=== PATIENT | female | born 1995 | race Two or more races ===

== ENCOUNTER 2019-03-01 16:36 | Outpatient (CLI) | payer OTHER ==
[2019-03-01 17:51] VITALS: BP 129/71; PULSE 100; RESP 16; TEMP 97.1
--- NOTE | 2019-03-19 07:56 | P.MSEPDOC ---
Presenting Problems - Arrival Data Date of Arrival on Unit: 03/01/19 Time of Arrival on Unit: 16:36 Mode of Transport: Ambulatory - Complaint OB-Reason for Admission/Chief Complaint: Decreased Movement Medical History - Information : 1 Para: 0 Term: 0 : 0 Abortions: Spontaneous or Elective: 0 Number of Living Children: 0 - Gestational Age Gestational Age by SCOTT (wks/days): 28 Weeks and 0 Days Review of Systems - Review of Systems Constitutional: No problems Breast: No problems ENT: No problems Cardiovascular: No problems Respiratory: No problems Gastrointestinal: No problems Genitourinary: No problems Musculoskeletal: No problems Neurological: No problems Skin: No problems Vital Signs - Temperature Temperature: 97.1 F Temperature Source: Temporal Artery Scan - Pulse Right Sitting Pulse Rate: 100 Pulse Assessment Method: Automatic Cuff - Respirations Respiratory Rate: 16 Oxygen Delivery Method: Room Air - Blood Pressure Right Arm Blood Pressure: 129/71 Blood Pressure Mean: 90 Blood Pressure Source: Automatic Cuff Medical Screen Scoring (Pre) - Cervical Exam Dilation: Exam Deferred Effacement: Exam Deferred Membranes: Intact - Uterine Contractions Frequency: N/A Duration: N/A Intensity: N/A - Maternal Vital Signs Maternal Temperature: N/A Maternal Blood Pressure: N/A Signs of Preeclampsia: N/A Maternal Respirations: N/A - Maternal Trauma Maternal Trauma: N/A - Assessment - Baby A Baseline FHR: 140 Heart Rate - NICHD Category: Category I (Normal) = 0 NST: Reactive Position: N/A Station: N/A - Total Score - Baby A Total Score - Baby A: 0 - Total Score - Baby B Total Score - Baby B: 0 - Total Score - Baby C Total Score - Baby C: 0 - Level of Risk - Baby A Level of Risk - Baby A: Low (0-5) - Level of Risk - Baby B Level of Risk - Baby B: Low (0-5) - Level of Risk - Baby C Level of Risk - Baby C: Low (0-5) Physician Notification (Pre) - Physician Notified Physician Notified Date: 03/01/19 Physician Notified Time: 17:28 New Order Received: Yes (D/c home) Disposition - Disposition OB Disposition: Discharge to home Discharge Date: 03/01/19 Discharge Time: 17:35 I agree with the RN Medical Screening Exam: Yes Risk & Benefit of care provided described in d/c instruction: Yes Diagnosis: DECREASED MOVEMENTS, THIRD TRIMESTER, FETUS 1
== END 2019-03-01 17:35 | disposition home or self-care (01) ==
LOC: FBPOP 16:36
PROVIDERS: ATTEND Obstetrics & Gynecology
DX: O36.8131 Decreased fetal movements, third trimester, fetus 1 (principal); Z3A.28 28 weeks gestation of pregnancy
CPT/HCPCS: 59025; G0463; 99213

== ENCOUNTER 2019-07-15 22:20 | Inpatient (IN) | payer OTHER ==
[2019-07-15] MEDS ORDERED: NALOXONE 0.4 MG/ML 1 ML VIAL IV PRN (22:57)
--- NOTE | 2019-07-15 22:57 | ED ---
General Adult HPI - General Chief complaint: Abdominal Pain Stated complaint: Abdominal pain Time Seen by Provider: 07/15/19 22:30 Source: patient, RN notes reviewed, old records reviewed (. Reports from [place] ) Mode of arrival: EMS Limitations: no limitations - History of Present Illness Initial comments: Patient is a pleasant 24-year-old female presenting to the emergency Department as a transfer from [facility]. Patient complains of abdominal discomfort since yesterday. They're patient did have elevated liver enzymes and computed tomography scan concerning for cholecystitis. Patient was transferred for GI consult. Patient still has discomfort and states it is starting to increase again, moderate at this time. Patient has had some nausea and decreased appetite. No fevers. No vomiting. No history of similar symptoms previously. No constipation or diarrhea. Abdominal discomfort is right upper abdomen - Related Data Home Medications Medication Instructions Recorded Confirmed Pnv No.95/Ferrous Fum/Folic AC 1 tab PO DAILY 03/01/19 03/01/19 [ Multivitamin Tablet] Allergies Allergy/AdvReac Type Severity Reaction Status Date / Time No Known Allergies Allergy Verified 03/01/19 17:00 Review of Systems ROS Statement: Those systems with pertinent positive or pertinent negative responses have been documented in the HPI. ROS Other: All systems not noted in ROS Statement are negative. Constitutional: Denies: fever Eyes: Denies: eye pain ENT: Denies: ear pain Respiratory: Denies: cough, dyspnea Cardiovascular: Denies: chest pain Endocrine: Denies: fatigue Gastrointestinal: Reports: abdominal pain, nausea Genitourinary: Denies: dysuria Musculoskeletal: Denies: back pain Skin: Denies: rash Neurological: Denies: weakness Past Medical History History of Any Multi-Drug Resistant Organisms: None Reported Smoking Status: Never smoker General Exam Limitations: no limitations General appearance: alert, in no apparent distress Head exam: Present: normocephalic Eye exam: Present: normal appearance Neck exam: Present: normal inspection Respiratory exam: Present: normal lung sounds bilaterally Cardiovascular Exam: Present: regular rate, normal rhythm GI/Abdominal exam: Present: soft, tenderness (Mild tenderness right upper quadrant), normal bowel sounds. Absent: distended, guarding, rebound, rigid, pulsatile mass Extremities exam: Present: normal inspection. Absent: pedal edema, calf tenderness Back exam: Present: normal inspection. Absent: tenderness Neurological exam: Present: alert Psychiatric exam: Present: normal affect, normal mood Skin exam: Present: normal color Course Vital Signs 07/15/19 22:25 Temperature 98.9 F Pulse Rate 84 Respiratory 16 Rate Blood Pressure 127/50 O2 Sat by Pulse 99 Oximetry - Reevaluation(s) Reevaluation #1: 07/15/19 22:56 Patient does not meet sepsis criteria at this time. Patient was given antibiotics prior to transfer. Medical Decision Making - Medical Decision Making Patient is updated on results and plan. Case was discussed in detail with Dr. Wade, who will admit for hospital call Disposition Clinical Impression: Cholecystitis Disposition: ADMITTED IP TO THIS HOSP Is patient prescribed a controlled substance at d/c from ED?: No Referrals: Bea Carson NPC [Primary Care Provider] - 1-2 days Decision Time: 22:57
[2019-07-15] MEDS ORDERED: HYDROmorphone 1 MG/ML 1 ML SYRINGE IVP STA (22:59)
[2019-07-15] MEDS: SODIUM CHLORIDE 0.9% 1,000 ML IV SCH (23:47)
[2019-07-16] MEDS: PIPERACILLIN-TAZOBACTAM 3.375 GM in SODIUM CHLORIDE 0.9% 100 ML IVPB SCH ×3 (00:23→16:16)
[2019-07-16] MEDS: HYDROmorphone 1 MG/ML 1 ML SYRINGE IVP PRN ×5 (05:36→20:56)
[2019-07-16] MEDS: SODIUM CHLORIDE 0.9% 1,000 ML IV SCH ×2 (05:37→14:13)
[2019-07-16] MEDS: PANTOPRAZOLE 40 MG/10 ML VIAL IV SCH (08:35)
[2019-07-16 08:58] LABS: ALT 342 U/L (4-34); AST 292 U/L (14-36); African American GFR (CKD) >90 (>60 ml/min/1.73 sqM); Albumin 3.3 g/dL (3.5-5.0); Alkaline Phosphatase 187 U/L (38-126); Anion Gap 6 mmol/L; Blood Urea Nitrogen 10 mg/dL (7-17); Calcium 8.4 mg/dL (8.4-10.2); Carbon Dioxide 20 mmol/L (22-30); Chloride 112 mmol/L (98-107); Glucose 80 mg/dL (74-99); Non-African American GFR(CKD) >90 (>60 ml/min/1.73 sqM); Sodium 138 mmol/L (137-145); Total Bilirubin 1.2 mg/dL (0.2-1.3); Total Protein 6.5 g/dL (6.3-8.2)
[2019-07-16 09:07] LABS: Potassium 4.7 mmol/L (3.5-5.1)
[2019-07-16 09:27] LABS: Basophils % (A) 0 %; Eosinophils # (A) 0.2 k/uL (0-0.7); Eosinophils % (A) 3 %; HCT 31.5 % (34.0-46.0); HGB 9.9 gm/dL (11.4-16.0); Hypochromasia Marked; Lymphocytes # (A) 1.5 k/uL (1.0-4.8); Lymphocytes % (A) 21 %; MCH 26.6 pg (25.0-35.0); MCHC 31.5 g/dL (31.0-37.0); MCV 84.5 fL (80.0-100.0); Mean Platelet Volume 6.7; Monocytes # (A) 0.3 k/uL (0-1.0); Monocytes % (A) 4 %; Neutrophils # (A) 4.9 k/uL (1.3-7.7); Neutrophils % (A) 71 %; Platelet Count 380 k/uL (150-450); RBC 3.73 m/uL (3.80-5.40); RDW 15.4 % (11.5-15.5)
[2019-07-16] MEDS ORDERED: KETOROLAC 30 MG/ML 1 ML VIAL IVP PRN (10:37)
--- NOTE | 2019-07-16 11:15 | P.GSCN ---
History of Present Illness Consult date: 07/16/19 Reason for Consult: Choledocholithiasis History of present illness: 24-year-old female has had abdominal pain upper abdomen for the last 3 days. She went to [place] [facility]. Had a CT abdomen and pelvis showing a distended gallbladder. Liver enzymes were elevated. She describes darker urine and slight yellowish discoloration to her skin. No history of similar events in the past. No ultrasound was done. 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 He sees a travel money advisor in [place]. Pain is continuing today. Currently 6 out of 10. Despite that she is hungry. GI is consulted. Review of Systems The patient denies any acute changes in vision or hearing, no dysphagia or odynophagia, no chest pain or shortness of breath, no dysuria or hematuria, no headache, no runny nose, no rectal bleeding or melena, no unexplained weight loss Past Medical History Additional Past Medical History / Comment(s): hemophilia History of Any Multi-Drug Resistant Organisms: None Reported Additional Past Surgical History / Comment(s): screw in right hip Past Anesthesia/Blood Transfusion Reactions: No Reported Reaction Past Psychological History: No Psychological Hx Reported Smoking Status: Former smoker Past Alcohol Use History: None Reported Past Drug Use History: Marijuana Additional Drug Use History / Comment(s): pt states she uses marijuana occasionally - Past Family History Mother Family Medical History: Unable to Obtain Father Family Medical History: Unable to Obtain Medications and Allergies Home Medications Medication Instructions Recorded Confirmed Type Ibuprofen [Motrin] 400 mg PO Q6HR PRN 07/15/19 07/15/19 History Allergies Allergy/AdvReac Type Severity Reaction Status Date / Time aspirin AdvReac PATIENT Verified 07/15/19 23:18 STATES SHE IS A hemophiliac Surgical - Exam Vital Signs Temp Pulse Resp BP Pulse Ox 98.9 F 84 16 127/50 99 07/15/19 22:25 07/15/19 22:25 07/15/19 22:25 07/15/19 22:25 07/15/19 22:25 Physical exam: General: Well-developed, well-nourished HEENT: Normocephalic, sclerae nonicteric Abdomen: Right upper quadrant tenderness, nondistended Extremities: No edema, mild jaundice appearance Neuro: Alert and oriented Results - Labs 07/16/19 08:44 07/16/19 07:34 Abnormal Lab Results - Last 24 Hours (Table) 07/16/19 07/16/19 Range/Units 07:34 08:44 RBC 3.73 L (3.80-5.40) m/uL Hgb 9.9 L (11.4-16.0) gm/dL Hct 31.5 L (34.0-46.0) % Chloride 112 H (98-107) mmol/L Carbon Dioxide 20 L (22-30) mmol/L AST 292 H (14-36) U/L ALT 342 H (4-34) U/L Alkaline Phosphatase 187 H (38-126) U/L Albumin 3.3 L (3.5-5.0) g/dL Diabetes panel 07/16/19 Range/Units 07:34 Sodium 138 (137-145) mmol/L Potassium 4.7 (3.5-5.1) mmol/L Chloride 112 H (98-107) mmol/L Carbon Dioxide 20 L (22-30) mmol/L BUN 10 (7-17) mg/dL Creatinine 0.64 (0.52-1.04) mg/dL Glucose 80 (74-99) mg/dL Calcium 8.4 (8.4-10.2) mg/dL AST 292 H (14-36) U/L ALT 342 H (4-34) U/L Alkaline Phosphatase 187 H (38-126) U/L Total Protein 6.5 (6.3-8.2) g/dL Albumin 3.3 L (3.5-5.0) g/dL Calcium panel 07/16/19 Range/Units 07:34 Calcium 8.4 (8.4-10.2) mg/dL Albumin 3.3 L (3.5-5.0) g/dL Pituitary panel 07/16/19 Range/Units 07:34 Sodium 138 (137-145) mmol/L Potassium 4.7 (3.5-5.1) mmol/L Chloride 112 H (98-107) mmol/L Carbon Dioxide 20 L (22-30) mmol/L BUN 10 (7-17) mg/dL Creatinine 0.64 (0.52-1.04) mg/dL Glucose 80 (74-99) mg/dL Calcium 8.4 (8.4-10.2) mg/dL Adrenal panel 07/16/19 Range/Units 07:34 Sodium 138 (137-145) mmol/L Potassium 4.7 (3.5-5.1) mmol/L Chloride 112 H (98-107) mmol/L Carbon Dioxide 20 L (22-30) mmol/L BUN 10 (7-17) mg/dL Creatinine 0.64 (0.52-1.04) mg/dL Glucose 80 (74-99) mg/dL Calcium 8.4 (8.4-10.2) mg/dL Total Bilirubin 1.2 (0.2-1.3) mg/dL AST 292 H (14-36) U/L ALT 342 H (4-34) U/L Alkaline Phosphatase 187 H (38-126) U/L Total Protein 6.5 (6.3-8.2) g/dL Albumin 3.3 L (3.5-5.0) g/dL Assessment and Plan (1) Choledocholithiasis Narrative/Plan: 24-year-old female with probable choledocholithiasis and acute cholecystitis. Liver enzymes trending downwards currently. We'll check abdominal ultrasound at this time. Await GI and hematology consult. Repeat labs tomorrow. Current Visit: Yes Status: Acute Code(s): K80.50 - CALCULUS OF BILE DUCT W/O CHOLANGITIS OR CHOLECYST W/O OBST SNOMED Code(s): 402625214
--- NOTE | 2019-07-16 12:28 | US ---
"EXAMINATION TYPE: US gallbladder DATE OF EXAM: 07/16/2019 COMPARISON: NONE CLINICAL HISTORY: elevated liver enzymes. EXAM MEASUREMENTS: Liver Length: 19.7 cm Gallbladder Wall: 0.3 cm CBD: 1.2 cm Right Kidney: 11.4 cm Morbidly obese patient. Pancreas: wnl Liver: enlarged but homogeneous. Gallbladder: scattered dependant echogenic foci with biliary sludge, some echogenic foci in anterior wall possibly representing adenomyomatosis, probable stone in neck. Thin septation within the gallbl adder. Evidence for sonographic Scruggs's sign: no CBD: dilated Right Kidney: wnl IMPRESSION: There appears to be choledocholithiasis with gallstones in the gallbladder neck and withi n the dilated common bile duct. Biliary sludge is also seen with few thin septations of the gallbladd er. However sonographic Scruggs's sign is negative and no pericholecystic fluid is seen. The gallbladd er however is hydropic in size and overall findings are concerning for developing acute cholecystitis . A [place] level critical message alert has been initiated for Vernon Eastman via the 10X10 Room 36 0 | Critical Results System on 07/16/2019 12:26 PM. This message alert has been sent to Vernon maurer via the preferences provided by the clinician for the receipt of Radiology Critical Findings. [facility] ID [id number]."
--- NOTE | 2019-07-16 13:01 | P.HPIM ---
History of Present Illness 24-year-old female came in with comments of right upper quadrant abdominal pain started about 3 days ago patient denied any fever chills. CT of the abdomen did show distended gallbladder ultrasound of the abdomen was opted which showed choledocholithiasis patient does have elevated liver enzymes and elevated bilirubin. Patient does have dark colored urine with some yellowish discoloration of the skin. Patient had some nausea no vomiting. Patient denied any fever chills. Patient apparently had history of hemophilia a patient had surgeries in the past without any complications. General surgery consult and hematology because of this history although history of hemophilia is not really clear at this time. Pain in the right upper quadrant a sharp in nature moderate severity which presently resolved. Review of Systems REVIEW OF SYSTEMS: CONSTITUTIONAL: No fever, no malaise, no fatigue. HEENT: No recent visual problems or hearing problems. Denied any sore throat. CARDIOVASCULAR: No chest pain, orthopnea, PND, no palpitations, no syncope. PULMONARY: No shortness of breath, no cough, no hemoptysis. GASTROINTESTINAL: As mentioned in HPI NEUROLOGICAL: No headaches, no weakness, no numbness. HEMATOLOGICAL: Denies any bleeding or petechiae. GENITOURINARY: Denies any burning micturition, frequency, or urgency. MUSCULOSKELETAL/RHEUMATOLOGICAL: Denies any joint pain, swelling, or any muscle pain. ENDOCRINE: Denies any polyuria or polydipsia. The rest of the 14-point review of systems is negative. Past Medical History Additional Past Medical History / Comment(s): hemophilia History of Any Multi-Drug Resistant Organisms: None Reported Additional Past Surgical History / Comment(s): screw in right hip Past Anesthesia/Blood Transfusion Reactions: No Reported Reaction Past Psychological History: No Psychological Hx Reported Smoking Status: Former smoker Past Alcohol Use History: None Reported Past Drug Use History: Marijuana Additional Drug Use History / Comment(s): pt states she uses marijuana occasionally - Past Family History Mother Family Medical History: Unable to Obtain Father Family Medical History: Unable to Obtain Medications and Allergies Home Medications Medication Instructions Recorded Confirmed Type Ibuprofen [Motrin] 400 mg PO Q6HR PRN 07/15/19 07/15/19 History Allergies Allergy/AdvReac Type Severity Reaction Status Date / Time aspirin AdvReac PATIENT Verified 07/15/19 23:18 STATES SHE IS A hemophiliac Physical Exam Vitals: Vital Signs Temp Pulse Pulse Resp BP BP Pulse Ox 07/16/19 08:34 98.1 F 76 18 100/60 95 07/16/19 05:30 98.0 F 75 18 99/66 95 07/16/19 00:40 97.9 F 78 18 98/60 97 07/16/19 00:19 98.7 F 86 19 114/70 97 07/15/19 22:25 98.9 F 84 16 127/50 99 Intake and Output 07/15/19 07/16/19 07/16/19 22:59 06:59 14:59 Other: # Voids 1 1 Weight 125.645 kg 125.8 kg PHYSICAL EXAMINATION: GENERAL: The patient is alert and oriented x3, not in any acute distress. Obese HEENT: Pupils are round and equally reacting to light. EOMI. No scleral icterus. No conjunctival pallor. Normocephalic, atraumatic. No pharyngeal erythema. No thyromegaly. CARDIOVASCULAR: S1 and S2 present. No murmurs, rubs, or gallops. PULMONARY: Chest is clear to auscultation, no wheezing or crackles. ABDOMEN: Soft, nontender, nondistended, normoactive bowel sounds. No palpable organomegaly. Scruggs's sign is negative no tenderness MUSCULOSKELETAL: No joint swelling or deformity. EXTREMITIES: No cyanosis, clubbing, or pedal edema. NEUROLOGICAL: Gross neurological examination did not reveal any focal deficits. SKIN: No rashes. Results CBC & Chem 7: 07/16/19 08:44 07/16/19 07:34 Labs: Abnormal Lab Results - Last 24 Hours (Table) 07/16/19 07/16/19 Range/Units 07:34 08:44 RBC 3.73 L (3.80-5.40) m/uL Hgb 9.9 L (11.4-16.0) gm/dL Hct 31.5 L (34.0-46.0) % Chloride 112 H (98-107) mmol/L Carbon Dioxide 20 L (22-30) mmol/L AST 292 H (14-36) U/L ALT 342 H (4-34) U/L Alkaline Phosphatase 187 H (38-126) U/L Albumin 3.3 L (3.5-5.0) g/dL Thrombosis Risk Factor Assmnt - Choose All That Apply Any of the Below Risk Factors Present?: Yes Each Factor Represents 1 point: Obesity (BMI >25) Other Risk Factors: No Other congenital or acquired thrombophilia - If yes, enter type in comment: No Thrombosis Risk Factor Assessment Total Risk Factor Score: 1 Thrombosis Risk Factor Assessment Level: Low Risk Assessment and Plan Plan: -Possible acute cholecystitis with the choledocholithiasis: Patient will be continued on IV fluids and the IV Zosyn, August surgery evaluated the patient and patient may need an ERCP followed by cholecystectomy patient will be evaluated by gastroenterology. -History of hemophilia a: Hematology will evaluated the patient -Elevated liver enzymes: Secondary to choledocholithiasis -Obesity -Occasional use of marijuana: Counseling was provided -Due to prophylaxis early ambulation and GI prophylaxis with Protonix .
[2019-07-16 15:48] LABS: Partial Thromboplastin Time 25.6 sec (22.0-30.0)
--- NOTE | 2019-07-16 16:16 | MR ---
EXAMINATION TYPE: MR MRCP DATE OF EXAM: 07/16/2019 COMPARISON: Abdominal ultrasound of the same date. HISTORY: Elevated LFT r/o CBD stone TECHNIQUE: Standard MRCP was performed of the abdomen using [id number] imaging without intravenou s contrast per department protocol. FINDINGS: Findings on the ultrasound and confirmed as there is a distal common bile duct calculus see n on coronal T2 nonfat axial image 20 of series 301 and dilation of the bile duct up to 1.4 cm. Numer ous punctate calculi are seen within the gallbladder. Minimal intrahepatic biliary ductal dilatation. The spleen is prominent in size measuring 13.4 cm in craniocaudal dimension approaching criteria for splenomegaly. The unenhanced adrenal glands, pancreas, and kidneys are unremarkable in morphology. Vi sualized portions of the abdominal aorta are also unremarkable. There is a small hiatal hernia seen. Adenopathies imaging demonstrate no evidence of hepatic steatosis. IMPRESSION: 1. Confirmation of the distal common bile duct calculus measuring 2 mm and dilation of the main commo n bile duct abnormally up to 1.4 cm with minimal intrahepatic biliary ductal dilatation. Numerous add itional calculi within the gallbladder. Surgical consultation recommended if not already performed. 2. Spleen approaches criteria for splenomegaly. 3. Small hiatal hernia.
--- NOTE | 2019-07-16 17:51 | CONS ---
CONSULTATION DATE OF DICTATION: 07/16/2019 REASON FOR CONSULTATION: Elevated LFTs and possible CBD stones. HISTORY OF PRESENT ILLNESS: The patient is a 24-year-old pleasant white female who was transferred from [facility] when she presented with severe right upper quadrant abdominal pain that started about 3 days ago. The pain was mostly in the right upper quadrant area radiating to the back associated with some nausea but no emesis. She went to the emergency room at [facility] and she had a CT of the abdomen and pelvis done that showed distended gallbladder. Subsequently she had an ultrasound of the abdomen done that showed evidence of possible CBD stone as well as slight thickening of the gallbladder consistent with acute cholecystitis. She was also noted to have elevated serum transaminases, and hence we are consulted for possible ERCP. The patient is feeling much better today. She still has abdominal pain, on pain medications as needed. She reports no nausea or vomiting. She never had these symptoms in the past. 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 She follows with a public address system mechanic at a [facility]. PAST SURGICAL HISTORY: Right hip surgery. MEDICATIONS AT HOME: Ibuprofen. ALLERGIES: ASPIRIN. SOCIAL HISTORY: No smoking. No alcohol use. FAMILY HISTORY: Family history could not be obtained, as patient is adopted. REVIEW OF SYSTEMS: CARDIOPULMONARY: No chest pain or shortness of breath. GENITOURINARY: No dysuria or hematuria. MUSCULOSKELETAL: Unremarkable. SKIN: Unremarkable. ENDOCRINE: Unremarkable. PSYCHIATRIC: Unremarkable. NEUROLOGY: Unremarkable. ENT/VISION: Unremarkable. CONSTITUTIONAL: No recent weight loss. No fever, chills, night sweats. PHYSICAL EXAMINATION: She appears comfortable. No apparent distress. VITAL SIGNS: Stable. Blood pressure is 127/50, pulse rate 84, temperature 98.9. HEENT examination unremarkable. Conjunctivae pink. Sclerae anicteric. Oral cavity no lesions. NECK: No JVD or lymph node enlargement. CHEST: Clear to auscultation. HEART: Regular rate and rhythm. ABDOMEN: Soft. Bowel sounds are positive. No organomegaly. EXTREMITIES: No pedal edema. SKIN: No rashes. NEUROLOGIC: Alert and oriented x3. No focal deficits. LABS: Labs done today show WBC is 7, hemoglobin 9.9, platelets normal. Basic metabolic panel is within normal limits. AST 292, ALT 342, T-bilirubin 1.2, and alkaline phosphatase is 187. COVID-19 is negative. IMPRESSION: 1. This is a lady who presented to the hospital with severe epigastric and right upper quadrant abdominal pain for the last 3 days' duration and noted to have elevated serum transaminases and ultrasound showing evidence of possible CBD stones/acute cholecystitis. Presently on IV antibiotics and symptoms are gradually improving. Her serum transaminases have improved, making it likely that she may have possibly passed the CBD stone at this time, but this of course cannot be entirely excluded. Ultrasound did show possible choledocholithiasis. 2. History of hemophilia A. Hematology has been consulted. RECOMMENDATIONS: Will obtain an MRCP to see if the patient indeed has any CBD stones, and if so will consider an ERCP. Given her history of hemophilia A, at this time we will await recommendations from Dr. Salomon, who will be evaluating the patient today. In the meantime we will repeat LFTs in the morning, obtain MRCP tomorrow morning, and further recommendations will be made based on the results. Thank you for this consultation. AMISH / NAZANIN: [id number] /
[2019-07-16 23:18] LABS: % Iron Saturation 7.55 (12.00-45.00); Folate, Serum 6.7 ng/mL
[2019-07-17] MEDS: ONDANSETRON 4 MG/2 ML VIAL IVP PRN ×2 (00:05→17:55)
[2019-07-17] MEDS: HYDROmorphone 1 MG/ML 1 ML SYRINGE IVP PRN ×6 (00:11→18:02)
[2019-07-17] MEDS: SODIUM CHLORIDE 0.9% 1,000 ML IV SCH ×3 (00:21→18:56)
[2019-07-17] MEDS: PIPERACILLIN-TAZOBACTAM 3.375 GM in SODIUM CHLORIDE 0.9% 100 ML IVPB SCH ×4 (00:21→16:51)
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
[2019-07-17] MEDS: PANTOPRAZOLE 40 MG/10 ML VIAL IV SCH (08:08)
[2019-07-17 08:22] LABS: HCT 31.4 % (34.0-46.0); HGB 9.4 gm/dL (11.4-16.0); Hypochromasia Marked; MCH 25.7 pg (25.0-35.0); MCHC 29.9 g/dL (31.0-37.0); MCV 86.1 fL (80.0-100.0); Mean Platelet Volume 6.8; Platelet Count 360 k/uL (150-450); RBC 3.65 m/uL (3.80-5.40); WBC 6.9 k/uL (3.8-10.6)
[2019-07-17 08:33] LABS: ALT 264 U/L (4-34); AST 135 U/L (14-36); African American GFR (CKD) >90 (>60 ml/min/1.73 sqM); Albumin 3.3 g/dL (3.5-5.0); Alkaline Phosphatase 235 U/L (38-126); Anion Gap 7 mmol/L; Blood Urea Nitrogen 9 mg/dL (7-17); Calcium 8.7 mg/dL (8.4-10.2); Carbon Dioxide 21 mmol/L (22-30); Chloride 110 mmol/L (98-107); Glucose 79 mg/dL (74-99); Non-African American GFR(CKD) >90 (>60 ml/min/1.73 sqM); Potassium 3.8 mmol/L (3.5-5.1); Sodium 138 mmol/L (137-145); Total Bilirubin 1.2 mg/dL (0.2-1.3); Total Protein 6.2 g/dL (6.3-8.2)
--- NOTE | 2019-07-17 08:42 | P.PN ---
Subjective Progress Note Date: 07/17/19 Principal diagnosis: Choledocholithiasis Patient still having abdominal discomfort. Slightly improved. Morning labs show decrease in ALT and AST. Slight increase in alkaline phosphatase. Bilirubin has remained the same. She is afebrile. Objective - Vital Signs Vital signs: Vital Signs Temp 98.1 F 07/17/19 08:12 Pulse 76 07/17/19 08:12 Resp 18 07/17/19 08:12 BP 101/64 07/17/19 08:12 Pulse Ox 95 07/17/19 08:12 Intake & Output 07/16/19 07/17/19 07/17/19 18:59 06:59 18:59 Intake Total 550 Balance 550 Intake: Oral 550 Other: # Voids 1 1 # Emeses 1 - Exam Abdomen: Soft, nondistended, mild right upper quadrant tenderness - Labs CBC & Chem 7: 07/17/19 07:51 07/17/19 07:51 Labs: Abnormal Lab Results - Last 24 Hours (Table) 07/16/19 07/16/19 07/16/19 Range/Units 07:34 08:44 08:44 RBC 3.73 L (3.80-5.40) m/uL Hgb 9.9 L (11.4-16.0) gm/dL Hct 31.5 L (34.0-46.0) % MCHC (31.0-37.0) g/dL RDW (11.5-15.5) % Retic Count 3.0 H (0.5-2.0) % Chloride 112 H (98-107) mmol/L Carbon Dioxide 20 L (22-30) mmol/L Iron (50-170) ug/dL % Saturation (12.00-45.00) AST 292 H (14-36) U/L ALT 342 H (4-34) U/L Alkaline Phosphatase 187 H (38-126) U/L Total Protein (6.3-8.2) g/dL Albumin 3.3 L (3.5-5.0) g/dL 07/16/19 07/17/19 07/17/19 Range/Units 15:07 07:51 07:51 RBC 3.65 L (3.80-5.40) m/uL Hgb 9.4 L (11.4-16.0) gm/dL Hct 31.4 L (34.0-46.0) % MCHC 29.9 L (31.0-37.0) g/dL RDW 16.0 H (11.5-15.5) % Retic Count (0.5-2.0) % Chloride 110 H (98-107) mmol/L Carbon Dioxide 21 L (22-30) mmol/L Iron 25 L (50-170) ug/dL % Saturation 7.55 L (12.00-45.00) AST 135 H (14-36) U/L ALT 264 H (4-34) U/L Alkaline Phosphatase 235 H (38-126) U/L Total Protein 6.2 L (6.3-8.2) g/dL Albumin 3.3 L (3.5-5.0) g/dL Assessment and Plan (1) Choledocholithiasis Narrative/Plan: Given the patient's ongoing symptoms suspect choledocholithiasis persists. MRCP versus ERCP to be considered at this point. We'll discuss with GI. Apparently Dr. Salomon spoke with the patient's line servicer yesterday. Await further recommendations. Current Visit: Yes Status: Acute Code(s): K80.50 - CALCULUS OF BILE DUCT W/O CHOLANGITIS OR CHOLECYST W/O OBST SNOMED Code(s): 985694399
--- NOTE | 2019-07-17 10:23 | PN ---
PROGRESS NOTE DATE OF DICTATION: 07/17/2019 The patient is a 24-year-old pleasant white female admitted to hospital with severe epigastric right upper quadrant abdominal pain for the last 4 days duration. Noted to have elevated LFTs. An MRCP done yesterday did reveal evidence of 2 mm distal common bile duct stone with biliary ductal dilation as well as gallstones. The patient has history of hemophilia A. Dr. Salomon evaluated her yesterday. Today she continues to complain of abdominal pain, some intermittent nausea, vomiting. No fever, chills, or night sweats. PHYSICAL EXAMINATION: Blood pressure is 104/64, pulse is 76, temperature 98.1. HEENT examination unremarkable. Conjunctivae pink. Sclerae anicteric. Oral cavity no lesions. NECK: No JVD or lymph node enlargement. CHEST: Clear to auscultation. HEART: Regular rate and rhythm. ABDOMEN: Soft. Bowel sounds are positive. No organomegaly. EXTREMITIES: No pedal edema. SKIN no rashes. NEUROLOGIC: Alert and oriented x3. No focal deficits. LABS: WBC 6.9, hemoglobin 9.4, platelets normal. Basic metabolic panel is within normal limits. AST is 135, ALT 264, and alkaline phosphatase 235, and T-bilirubin is 1.2. IMPRESSION: 1. Choledocholithiasis/acute cholecystitis on broad-spectrum antibiotics. The patient had an MRCP yesterday that revealed a 2 mm distal common bile duct stone as well as biliary ductal dilation and gallstones. Presently on IV antibiotics. The symptoms are gradually improving. LFTs are trending down. 2. History of hemophilia A. Dr. Salomon following the patient closely. RECOMMENDATIONS: We will proceed with ERCP tomorrow. Discussed with the patient risks, benefits and complications of the procedure. I also discussed with Dr. Salomon in great length and patient will be given DDAVP/cryoprecipitate tomorrow prior to the procedure for history of hemophilia A. The patient understands the risks, benefits and complications of the procedure. Thank you for this consultation. AMISH / NAZANIN: [id number] /
[2019-07-17 15:26] VITALS: BP 105/68; PULSE 84; RESP 18; TEMP 98
--- NOTE | 2019-07-17 15:50 | P.DS ---
Providers Date of admission: 07/15/19 22:59 Attending physician: Anders Wade Consults: 07/15/19 22:58 Consult Physician Urgent Consulting Provider: Ilya Coe Consult Reason/Comments: Cholecystitis Do you want consulting provider notified?: Yes Consult Physician Urgent Consulting Provider: Mia Barry Consult Reason/Comments: Elevated liver enzymes, evaluate for ERCP Do you want consulting provider notified?: Yes 07/16/19 10:47 Consult Physician Routine Consulting Provider: Hector Salomon Consult Reason/Comments: hemophilia Do you want consulting provider notified?: Yes Primary care physician: Bea Carson, [facility] Hospital Course: 24-year-old female came in with comments of right upper quadrant abdominal pain started about 3 days ago patient denied any fever chills. CT of the abdomen did show distended gallbladder ultrasound of the abdomen was opted which showed choledocholithiasis patient does have elevated liver enzymes and elevated bilirubin. Patient does have dark colored urine with some yellowish discoloration of the skin. Patient had some nausea no vomiting. Patient denied any fever chills. Patient apparently had history of hemophilia a patient had surgeries in the past without any complications. General surgery consult and hematology because of this history although history of hemophilia is not really clear at this time. Pain in the right upper quadrant a sharp in nature moderate severity which presently resolved. 07/17/2019 Patient is having on and off abdominal pain in the right upper quadrant patient liver enzymes improved patient had an MRCP which showed intrahepatic biliary ductal dilatation with a dilated common bile duct of around 1.4 cm with small stones. I had a lengthy discussion with gastroenterology and hematology, patient apparently has von Willebrand 3 deficiency, patient has normal PT and PTT. Patient bleeding risk is close to a normal person. Gastroenterology and general surgery recommending transfer to a higher level facility if patient and supper having uncontrollable bleeding from ERCP. Patient will need ERCP followed by cholecystectomy. Patient is being transferred to [facility]. Patient does not have hemophilia please refer to the lengthy extensive documentation from rheumatology PHYSICAL EXAMINATION: GENERAL: The patient is alert and oriented x3, not in any acute distress. Obese HEENT: Pupils are round and equally reacting to light. EOMI. No scleral icterus. No conjunctival pallor. Normocephalic, atraumatic. No pharyngeal erythema. No thyromegaly. CARDIOVASCULAR: S1 and S2 present. No murmurs, rubs, or gallops. PULMONARY: Chest is clear to auscultation, no wheezing or crackles. ABDOMEN: Soft, nontender, nondistended, normoactive bowel sounds. No palpable organomegaly. Scruggs's sign is negative no tenderness MUSCULOSKELETAL: No joint swelling or deformity. EXTREMITIES: No cyanosis, clubbing, or pedal edema. NEUROLOGICAL: Gross neurological examination did not reveal any focal deficits. SKIN: No rashes. Assessment and Plan Plan: -Possible acute cholecystitis with the choledocholithiasis: Patient will be continued on IV fluids and the IV Zosyn, patient had an MRCP findings of MRCP as mentioned above -History of von Willebrand disease patient appears to have had mild disease had bleeding risk is close to person as her PT and PTT are within normal limits if needed patient can be given desmopressin. -Elevated liver enzymes: Secondary to choledocholithiasis -Obesity -Occasional use of marijuana As mentioned above patient is being transferred to [facility] Plan - Discharge Summary Discharge Rx Participant: Yes New Discharge Prescriptions: No Action Ibuprofen [Motrin] 400 mg PO Q6HR PRN PRN Reason: Pain Discharge Medication List Ibuprofen [Motrin] 400 mg PO Q6HR PRN 07/15/19 [History] Follow up Appointment(s)/Referral(s): Bea Carson NPC [Primary Care Provider] - 1-2 days
== END 2019-07-17 19:02 | disposition short-term general hospital (02) | DRG 445 ==
LOC: EC 22:20 → 6PED 22:59
PROVIDERS: ADMIT Internal Medicine; ATTEND Internal Medicine
DX: K80.62 Calculus of gallbladder and bile duct with acute cholecystitis without obstruction (principal); D68.0 Von Willebrand disease; Z68.42 Body mass index [BMI] 45.0-49.9, adult; E66.9 Obesity, unspecified; K82.8 Other specified diseases of gallbladder; Z11.59 Encounter for screening for other viral diseases; Z87.891 Personal history of nicotine dependence; Z88.6 Allergy status to analgesic agent
CPT/HCPCS: 74181; 76705; 80053; 82607; 82728; 82746; 83540; 83550; 83615; 83921; 85025; 85027; 85045; 85240; 85246; 85610; 85730; 87635; 96361; 96374; 99285

== ENCOUNTER 2021-07-23 02:20 | Inpatient (IN) | payer OTHER ==
[2021-07-23] MEDS ORDERED: METHYLERGONOVINE 0.2 MG/ML 1 ML AMP IM PRN (02:45)
[2021-07-23] MEDS ORDERED: OXYTOCIN 10 UNIT/ML 1 ML VIAL IM PRN (02:45)
[2021-07-23] MEDS ORDERED: OXYTOCIN 30 UNITS/500 ML NS 30 UNIT in SALINE 1 500ML.BAG IV SCH ×2 (02:45→05:45)
[2021-07-23] MEDS ORDERED: TERBUTALINE 1 MG/ML VIAL SQ PRN (02:45)
[2021-07-23] MEDS ORDERED: LIDOCAINE 1% (PF) 10 MG/ML (30 ML SDV) SQ PRN (02:45)
[2021-07-23] MEDS ORDERED: CARBOPROST TROMETHAMINE 250 MCG/ML 1 ML AMP IM PRN (02:45)
[2021-07-23] MEDS ORDERED: LACTATED RINGERS 1,000 ML IV SCH (02:45)
[2021-07-23 03:37] LABS: Anisocytosis Slight; Basophils % (A) 0 %; Eosinophils # (A) 0.1 k/uL (0-0.7); Eosinophils % (A) 1 %; HCT 32.5 % (34.0-46.0); HGB 10.4 gm/dL (11.4-16.0); Hypochromasia Slight; Lymphocytes # (A) 1.8 k/uL (1.0-4.8); Lymphocytes % (A) 15 %; MCH 32.8 pg (25.0-35.0); MCV 102.5 fL (80.0-100.0); Macrocytosis Moderate; Mean Platelet Volume 6.8; Monocytes # (A) 0.5 k/uL (0-1.0); Monocytes % (A) 4 %; Neutrophils # (A) 9.7 k/uL (1.3-7.7); Neutrophils % (A) 79 %; Platelet Count 418 k/uL (150-450); Poikilocytosis Moderate; RBC 3.18 m/uL (3.80-5.40); RDW 18.4 % (11.5-15.5); WBC 12.2 k/uL (3.8-10.6)
[2021-07-23] MEDS ORDERED: BUTORPHANOL 1 MG/ML 1 ML VIAL IV PRN (03:43)
[2021-07-23 04:06] LABS: INR 0.9 (<1.2); Partial Thromboplastin Time 25.3 sec (22.0-30.0); Prothrombin Time 9.5 sec (9.0-12.0)
[2021-07-23] MEDS ORDERED: ZOLPIDEM 5 MG TAB PO PRN (05:32)
[2021-07-23] MEDS ORDERED: BENZOCAINE/MENTHOL SPRAY 1 GM/SPRAY AEROSOL TOPICAL PRN (05:32)
[2021-07-23] MEDS ORDERED: diphenhydrAMINE 50 MG CAP PO PRN (05:32)
[2021-07-23] MEDS ORDERED: HYDROcodone/APAP 7.5-325MG 1 EACH TAB PO PRN (05:32)
[2021-07-23] MEDS ORDERED: diphenhydrAMINE 25 MG CAP PO PRN (05:32)
[2021-07-23] MEDS ORDERED: LANOLIN CREAM 5 GM TUBE TOPICAL PRN (05:32)
[2021-07-23] MEDS ORDERED: HYDROCORTISONE 2.5% RECTAL CREAM 30 GM TUBE RECTAL PRN (05:32)
[2021-07-23] MEDS ORDERED: HYDROcodone/APAP 5-325MG 1 EACH TAB PO PRN (05:32)
[2021-07-23] MEDS ORDERED: diphenhydrAMINE 50 MG/ML 1 ML VIAL IVP PRN ×2 (05:32)
[2021-07-23] MEDS ORDERED: IBUPROFEN 600 MG TAB PO PRN (05:32)
[2021-07-23] MEDS ORDERED: SIMETHICONE 80 MG CHEWABLE PO PRN (05:32)
--- NOTE | 2021-07-23 05:46 | P.HPOB ---
History of Present Illness H&P Date: 07/23/21 Chief Complaint: 39-2/7 weeks, active labor The patient is a 26-year-old 2 para 1001 admitted at 39-2/7 weeks by good dating parameters. She is admitted in active labor with all signs reassuring. She initially had established care with our practice but was transferred full-time to [facility] secondary to a diagnosis of von Willebrand's disease, type III, which is severe. Her has otherwise reportedly been completely uncomplicated and group B strep status is negative. On labor and delivery, there is a category 1 heart rate tracing. Group B strep status is reportedly negative. Obstetrical history: 2 para 1001 with 1 term vaginal delivery without complications. Current statistics listed in history present illness. EDC of 07/28/2021 was established by 10 week ultrasound. Laboratory workup demonstrates a blood type of O- with a negative antibody screen. Rubella status is immune. The remainder of laboratory workup appears to be within normal limits and group B strep status is negative. Gynecologic history: Unremarkable with no history of any infections to include STDs. Review of Systems Review of systems is confined to history of present illness. Past Medical History Additional Past Medical History / Comment(s): hemophilia, Von Willebrand's Disease History of Any Multi-Drug Resistant Organisms: None Reported Past Surgical History: Cholecystectomy Additional Past Surgical History / Comment(s): screw in right hip Past Anesthesia/Blood Transfusion Reactions: No Reported Reaction Past Psychological History: Anxiety, Depression Smoking Status: Never smoker Past Alcohol Use History: None Reported Past Drug Use History: Marijuana Additional Drug Use History / Comment(s): pt states she uses marijuana oc casionally - Past Family History Mother Family Medical History: Unable to Obtain Father Family Medical History: Unable to Obtain Medications and Allergies Home Medications Medication Instructions Recorded Confirmed Type Pnv,Calcium 72/Iron/Folic Acid 1 each PO DAILY 07/23/21 07/23/21 History [ Plus Tablet] Allergies Allergy/AdvReac Type Severity Reaction Status Date / Time aspirin AdvReac PATIENT Verified 07/23/21 02:33 STATES SHE IS A hemophiliac Exam Vital Signs Temp Pulse Resp BP Pulse Ox 07/23/21 03:16 97.2 F L 90 16 136/71 99 07/23/21 02:40 96.7 F L 99 16 136/71 99 Intake and Output 07/22/21 07/22/21 07/23/21 14:59 22:59 06:59 Other: Weight 126.552 kg In general, this is a well-developed, morbidly obese white female in no acute distress. Her heart has a regular rhythm and rate without murmur. Her lungs clear to auscultation bilaterally in all lainez. Her abdomen is obese, nondistended, has normal active bowel sounds, soft, nontender, and without any palpable masses aside from uterine fundus. Her extremities are without any cyanosis, clubbing, or edema and are nontender to palpation bilaterally. Digital cervical examination on admission demonstrates her cervix to be 5-6 cm dilated, 100% effaced, the vertex in presentation at -2 station. Results Result Diagrams: 07/23/21 03:15 Abnormal Lab Results - Last 24 Hours (Table) 07/23/21 Range/Units 03:15 WBC 12.2 H (3.8-10.6) k/uL RBC 3.18 L (3.80-5.40) m/uL Hgb 10.4 L (11.4-16.0) gm/dL Hct 32.5 L (34.0-46.0) % MCV 102.5 H (80.0-100.0) fL RDW 18.4 H (11.5-15.5) % Neutrophils # 9.7 H (1.3-7.7) k/uL Assessment and Plan (1) Active labor at term Current Visit: Yes Status: Acute Code(s): UVT7628 - SNOMED Code(s): 50291878 (2) Von Willebrand's disease type 3 Current Visit: Yes Status: Acute Code(s): D68.0 - VON WILLEBRAND'S DISEASE SNOMED Code(s): 554701894 Plan: The patient is admitted for active management of labor. She will have close maternal and surveillance and expectant management will be practiced. She is a good candidate for either IV or epidural analgesia, whichever she may danette se.
--- NOTE | 2021-07-23 05:49 | P.PROBDLV ---
Vaginal Delivery Note - . Vaginal Delivery Note: The patient is a 26-year-old 2 para 1001 admitted at 39-2/7 weeks by good dating parameters. She is admitted in active labor with all signs reassuring. She has had all of her care in the [place] area at [facility] secondary to a diagnosis of von Willebrand's disease, type III. She had initially established care in our practice at which time she was transferred. Her has reportedly been uncomplicated. She is known to be Rh- and received RhoGAM at 28 weeks. On labor and delivery, she made rapid progress from 5-6 cm to complete and then had spontaneous rupture of membranes and delivered in my absence a viable 7 lbs. 2 oz. baby girl with Apgars of 9 at 1 minute and 9 at 5 minutes. I arrived shortly after delivery at which time the placenta was still within the uterus. cord blood has been taken secondary to Rh- status by the nursing staff. The placenta was delivered spontaneously, intact, and grossly normal with a grossly normal three-vessel cord inserted approximate 4-5 cm from the margin of the placental disc. There were no lacerations of perineum, vagina, or cervix. Estimated blood loss for the case. To be approximately 200 mL. There were no complications. All sponge, instrument, needle counts were correct. There were no complications aside from the precipitous nature of the delivery which occurred in my absence. Both mother and are resting comfortably in recovery.
[2021-07-23] MEDS: SENNOSIDES-DOCUSATE SODIUM 1 EACH TAB PO SCH ×2 (07:41→20:17)
[2021-07-23] MEDS: ACETAMINOPHEN TAB 325 MG TAB PO PRN (18:10)
[2021-07-23] MEDS ORDERED: Rhogam IMMUNE GLOBULIN 1,500 UNIT/1 ML IM ONE (18:45)
[2021-07-24 07:11] LABS: Anisocytosis Slight; Basophils % (A) 1 %; Eosinophils # (A) 0.1 k/uL (0-0.7); Eosinophils % (A) 1 %; HCT 29.7 % (34.0-46.0); HGB 9.6 gm/dL (11.4-16.0); Hypochromasia Slight; Lymphocytes # (A) 2.1 k/uL (1.0-4.8); Lymphocytes % (A) 24 %; MCH 33.2 pg (25.0-35.0); MCHC 32.2 g/dL (31.0-37.0); Macrocytosis Moderate; Monocytes # (A) 0.4 k/uL (0-1.0); Monocytes % (A) 5 %; Neutrophils # (A) 5.9 k/uL (1.3-7.7); Neutrophils % (A) 68 %; Platelet Count 379 k/uL (150-450); Poikilocytosis Moderate; RBC 2.89 m/uL (3.80-5.40); RDW 18.2 % (11.5-15.5); WBC 8.6 k/uL (3.8-10.6)
[2021-07-24] MEDS: SENNOSIDES-DOCUSATE SODIUM 1 EACH TAB PO SCH (08:05)
[2021-07-24] MEDS: ACETAMINOPHEN TAB 325 MG TAB PO PRN (08:08)
--- NOTE | 2021-07-24 08:57 | P.DS ---
Providers Date of admission: 07/23/21 02:41 Expected date of discharge: 07/24/21 Attending physician: Trevon Smith Primary care physician: Stated None - Discharge Diagnosis(es) (1) Active labor at term Current Visit: Yes Status: Acute (2) Von Willebrand's disease type 3 Current Visit: Yes Status: Acute (3) Precipitous delivery Current Visit: Yes Status: Acute (4) Normal spontaneous vaginal delivery Current Visit: Yes Status: Acute Hospital Course: The patient is a 26-year-old 2 para 1001 admitted at 39-2/7 weeks by good dating parameters. She is admitted in active labor with all signs reassuring. Her care was carried out in [place] under the care of maternal medicine secondary to a diagnosis of von Willebrand's disease, type III. Her was otherwise uncomplicated and group B strep status is negative. On labor and delivery, she presented with a category 1 heart rate tracing. She made very rapid progress to the active phase of labor to complete and then pushed in my absence to a normal spontaneous vaginal delivery of a viable 7 lbs. 2 oz. baby girl with Apgars of 9 at 1 minute and 9 at 5 minut es. I a shortly thereafter and delivered the placenta. Her course was unremarkable vital signs remained stable and her temperature was afebrile throughout. She was deemed stable for discharge on day #1 was discharged home to follow-up in the office in 6 weeks' time routinely. Discharge instructions included calling for any significantly increased bleeding or foul-smelling lochia, significantly increased fever abdominal pain, perineal complaints, breast complaints, or anything also concerned her. She was additionally instructed to have nothing in the vagina for at least 6 weeks time to include intercourse. She understood her instructions and agrees follow up as noted above. Discharge medications included continue vitamins as she has opted to breast-feed. She was otherwise to use [id number] analgesic pain medications as needed. Maternal blood type is O- and cord blood was sent for evaluation for the necessity of RhoGAM prior to discharge. Rubella status is immune. Procedures: #1. Precipitous normal spontaneous vaginal delivery Patient Condition at Discharge: Stable Plan - Discharge Summary New Discharge Prescriptions: No Action Pnv,Calcium 72/Iron/Folic Acid [ Plus Tablet] 1 each PO DAILY Discharge Medication List Pnv,Calcium 72/Iron/Folic Acid [ Plus Tablet] 1 each PO DAILY 07/23/21 [History] Follow up Appointment(s)/Referral(s): Trevon Smith MD [STAFF PHYSICIAN] - 6 Weeks Discharge Disposition: HOME SELF-CARE
[2021-07-24 12:21] VITALS: BP 107/70; PULSE 86; RESP 16; TEMP 98.2
== END 2021-07-24 15:45 | disposition home or self-care (01) | DRG 806 ==
LOC: FBPOP 02:20 → 4FBP 02:41
PROVIDERS: ADMIT Obstetrics & Gynecology; ATTEND Obstetrics & Gynecology
PROC: 10E0XZZ Delivery of Products of Conception, External Approach (ICD-10-PCS; principal; 2021-07-23)
PROC: 4A0HXCZ Measurement of Products of Conception, Cardiac Rate, External Approach (ICD-10-PCS; 2021-07-23)
DX: O99.12 Other diseases of the blood and blood-forming organs and certain disorders involving the immune mechanism complicating childbirth (principal); D68.0 Von Willebrand disease; Z37.0 Single live birth; O62.3 Precipitate labor; O26.893 Other specified pregnancy related conditions, third trimester; F41.9 Anxiety disorder, unspecified; E66.01 Morbid (severe) obesity due to excess calories; O99.214 Obesity complicating childbirth; F32.A Depression, unspecified; O99.344 Other mental disorders complicating childbirth; Z3A.39 39 weeks gestation of pregnancy; Z88.6 Allergy status to analgesic agent; Z67.41 Type O blood, Rh negative; Z90.49 Acquired absence of other specified parts of digestive tract
CPT/HCPCS: 85025; 85461; 85610; 85730; 86850; 86900; 86901; 88307; 99213